=== PATIENT | female | born 1980 | race Caucasian/White ===

== ENCOUNTER 2020-09-19 08:57 | Day surgery (SDC) | payer OTHER ==
[~2020-09-19 08:57] MED LIST: Dexamethasone 4 MG/ML 5 ML MDV ONE; Ketorolac 30 MG/ML SDV ONE; Lactated Ringers 1,000 ML IV SCH; Lidocaine 1%/Sod Bicarbonate in NS 8.4% 1 ML Syringe IDERM PRN; Midazolam 1 MG/ML 2 ML SDV ONE; Ondansetron 4 MG/2 ML SDV ONE; Propofol 200 MG/20 ML SDV ONE; Rocuronium 50 MG/5 ML Vial ONE; Sodium Chloride 0.9% 10 ML Syringe FLUSH PRN; fentaNYL 250 MCG/5 ML SDV ONE
--- NOTE | 2020-09-19 09:42 | PCM.PREANE ---
Preanesthetic Assessment - Procedure Proposed Procedure: hysteroscopy with d and c - Anesthesia/Transfusion/Family Hx Anesthesia History: Prior Anesthesia Without Reaction Family History of Anesthesia Reaction: No Transfusion History: No Prior Transfusion(s) - Review of Systems General: No Symptoms Pulmonary: No Symptoms Cardiovascular: No Symptoms Gastrointestinal: No Symptoms Neurological: No Symptoms Other: Reports: Depression - Physical Assessment NPO Status Date: 09/18/20 NPO Status Time: 23:00 Vital Signs: 120/83 90 97% 97.8 16 Height: 5 ft 5 in Weight: 65 kg ASA Class: 2 Mental Status: Alert & Oriented x3 Airway Class: Mallampati = 1 Dentition: Reports: Normal Dentition Thyro-Mental Finger Breadths: 3 Mouth Opening Finger Breadths: 3 ROM/Head Extension: Full Lungs: Clear to Auscultation, Normal Respiratory Effort Cardiovascular: Regular Rate, Regular Rhythm - Allergies Allergies/Adverse Reactions: Allergies Allergy/AdvReac Type Severity Reaction Status Date / Time No Known Allergies Allergy Verified 09/18/20 14:41 - Blood Blood Available: No - Acknowledgements Anesthesia Type Planned: General Anesthesia, MAC Pt an Appropriate Candidate for the Planned Anesthesia: Yes Alternatives and Risks of Anesthesia Discussed w Pt/Guardian: Yes Pt/Guardian Understands and Agrees with Anesthesia Plan: Yes PreAnesthesia Questionnaire Cardiovascular History: Reports: None Respiratory History: Reports: Other (See Below) Other Respiratory History: cough Musculoskeletal History: Reports: Other (See Below) Other Musculoskeletal History: dysmennorhea, pelvic pain, irregulare menses, menorrhagia, Psychiatric History: Reports: Anxiety Endocrine/Metabolic History: Reports: None - Past Surgical History HEENT Surgical History: Reports: Oral Surgery - SUBSTANCE USE Tobacco Use Status *Q: Current Every Day Tobacco User Tobacco Use Within Last Twelve Months: Cigarettes Second Hand Smoke Exposure: Yes Days Per Week of Alcohol Use: 7 Number of Drinks Per Day: 1 Total Drinks Per Week: 7 Recreational Drug Use History: No - HOME MEDS Home Medications: Home Meds Cholecalciferol (Vitamin D3) [Vitamin D3] 1,000 unit PO DAILY 09/18/20 [History] Multivitamin [Multi-Vitamin Daily] 1 tab PO DAILY 09/18/20 [History] Norethindrone [Aygestin] 5 mg PO DAILY 09/18/20 [History] buPROPion HCL [Bupropion Xl] 300 mg PO DAILY 09/18/20 [History] - CURRENT (IN HOUSE) MEDS Current Meds: Current Medications Lactated Ringer's (Ringers, Lactated) 1,000 mls @ 125 mls/hr IV ASDIRECTED MICHELLE Stop: 09/19/20 23:00 Lidocaine/Sodium Bicarbonate (Lidocaine 1%/Sod Bicarbonate In Ns 8.4% 1 Ml Syringe) 0.25 ml IDERM ONETIME PRN PRN Reason: Prior to IV Start Stop: 09/19/20 18:00 Sodium Chloride (Sodium Chloride 0.9% 10 Ml Syringe) 10 ml FLUSH ASDIRECTED PRN PRN Reason: Keep Vein Open Stop: 09/19/20 18:00 Discontinued Medications Dexamethasone (Dexamethasone 4 Mg/Ml 5 Ml Mdv) Confirm Administered Dose 20 mg .ROUTE .STK-MED ONE Stop: 09/19/20 07:08 Fentanyl (Fentanyl 250 Mcg/5 Ml Sdv) Confirm Administered Dose 250 mcg .ROUTE .STK-MED ONE Stop: 09/19/20 07:07 Ketorolac Tromethamine (Ketorolac 30 Mg/Ml Sdv) Confirm Administered Dose 30 mg .ROUTE .STK-MED ONE Stop: 09/19/20 07:08 Lidocaine HCl (Lidocaine 1% 5 Ml Sdv) Confirm Administered Dose 5 ml .ROUTE .STK-MED ONE Stop: 09/19/20 07:08 Midazolam HCl (Midazolam 1 Mg/Ml 2 Ml Sdv) Confirm Administered Dose 2 mg .ROUTE .STK-MED ONE Stop: 09/19/20 07:07 Ondansetron HCl (Ondansetron 4 Mg/2 Ml Sdv) Confirm Administered Dose 4 mg .ROUTE .STK-MED ONE Stop: 09/19/20 07:08 Propofol (Propofol 200 Mg/20 Ml Sdv) Confirm Administered Dose 400 mg .ROUTE .STK-MED ONE Stop: 09/19/20 07:07 Rocuronium [place] (Rocuronium 50 Mg/5 Ml Vial) Confirm Administered Dose 50 mg .ROUTE .STK-MED ONE Stop: 09/19/20 07:08
[2020-09-19] MEDS ORDERED: Albuterol 0.083% 2.5 MG/3 ML Neb Soln NEB ONE (11:00)
[2020-09-19] MEDS ORDERED: Ketamine 500 mg/10 ML MDV ONE (11:04)
--- NOTE | 2020-09-19 11:13 | PCM.SN.2 ---
- Free Text/Narrative Note: Discussed with patient that I ordered an albuterol neb due to her history of smoking thus placing her at higher risk of having a reactive airway. Patient verbalized understanding. RT notified. On arrival of RT, patient refusing the albuterol treatment. Discussed with patient that she is a higher risk for having a reactive airway and having a bronchospasm. Patient verbalized understanding and would like to still refuse the albuterol treatment. Anushka Tan [employer]
[2020-09-19] MEDS ORDERED: Propofol 200 MG/20 ML SDV ONE (12:22)
[2020-09-19] MEDS ORDERED: Ondansetron 4 MG/2 ML SDV IVPUSH PRN (12:51)
--- NOTE | 2020-09-19 12:55 | PCM48HPAN ---
Post Anesthesia Note - EVALUATION WITHIN 48HRS OF ANESTHETIC Vital Signs in Normal Range: Yes Patient Participated in Evaluation: Yes Respiratory Function Stable: Yes Airway Patent: Yes Cardiovascular Function Stable: Yes Hydration Status Stable: Yes Pain Control Satisfactory: Yes Nausea and Vomiting Control Satisfactory: Yes Mental Status Recovered: Yes Vital Signs: Last Vital Signs Temp 98.2 F 09/19/20 12:41 Pulse 78 09/19/20 12:41 Resp 13 09/19/20 12:41 BP 111/75 09/19/20 12:41 Pulse Ox 100 09/19/20 12:41
--- NOTE | 2020-09-19 12:57 | PCM.OPNOTE ---
- General Post-Op/Procedure Note Date of Surgery/Procedure: 09/19/20 Operative Procedure(s): Hysteroscopy, dilation and curettage Findings: Uterus sounded to approximately 12 cm, approximately 3 small polypoid structure present in the anterior and left cornual area of the endometrial cavity. Bi manual exam showed uterus to be anteflexed, mildly enlarged, no adnexal abnormalities noted. Cervix is multiparous in nature. Patient had adequate pelvic relaxation to accommodate vaginal approach if hysterectomy were to be done. Pre Op Diagnosis: 1. Irregular uterine bleeding. 2. Thickened endometrium. 3. Complex endometrial hyperplasia without atypia Post-Op Diagnosis: Same Anesthesia Technique: MAC Primary Surgeon: Ervin Green Secondary Surgeon: Milla Cisneros Anesthesia Provider: Anushka Tan Pathology: Endometrial curettings Fluid Replacement, Intraop: 1,000 EBL in mLs: 5 Complications: None Condition: Good Free Text/Narrative:: Surgery duration: 14 minutes Procedure: The patient is taking the operative placed in a supine position on the operating table. She received 2 g of Ancef preoperatively for infection prophylaxis and had sequential compression stockings in place for DVT prophylaxis. Patient was given general MAC anesthesia. She is placed in a dorsal lithotomy position and prepped and draped in usual fashion. An exam under anesthesia was performed. Findings as described above. A weighted speculum was placed in the vagina. Cervix is visualized. It was grasped anteriorly with a single-tooth tenaculum. Uterus was then sounded to a depth of 12 cm. It is from the anterior, anteflexed mid position. The cervix was dilated to entrance of a 5 mm 12 rigid hysteroscope. This was placed without problem and normal saline was used as a distending medium. The perimetria cavity was visualized. Findings as described above. Decision was made to proceed with polypectomy. D&C was performed and 2-3 polyps were removed. Polyp forceps was introduced and the remaining polyp was removed. After this is performed a D&C was performed. Moderate amount tissue was obtained. Minimal bleeding was encountered. Hysteroscope was then placed back into the endometrial cavity. Blood was flushed out and the findings were consistent relatively normal-appearing endometrial cavity. At this point the scope was removed. The vagina was cleared of old blood, the cervix was released and the weighted speculum was removed. Patient was returned to supine position and awakened from general anesthesia. She tolerated the procedure well and operating room in good condition.
[2020-09-19] MEDS ORDERED: Ibuprofen 600 MG Tab PO PRN (13:00)
== END 2020-09-19 14:25 | disposition home or self-care (01) ==
LOC: JD.SDS 08:57
PROVIDERS: ATTEND Obstetrics & Gynecology
DX: N84.0 Polyp of corpus uteri (principal); N85.01 Benign endometrial hyperplasia; N93.9 Abnormal uterine and vaginal bleeding, unspecified; F17.210 Nicotine dependence, cigarettes, uncomplicated
CPT/HCPCS: 58558; J1885; J2250; J2704; J3010; J7120; 00952; J1100; J2405

== ENCOUNTER 2021-04-22 06:20 | Day surgery (SDC) | payer OTHER ==
[~2021-04-22 06:20] MED LIST changes: -Dexamethasone 4 MG/ML 5 ML MDV ONE; -Ketorolac 30 MG/ML SDV ONE; -Midazolam 1 MG/ML 2 ML SDV ONE; -Ondansetron 4 MG/2 ML SDV ONE; -Propofol 200 MG/20 ML SDV ONE; -Rocuronium 50 MG/5 ML Vial ONE; +Sodium Chloride 0.9% 10 ML Syringe FLUSH SCH; -fentaNYL 250 MCG/5 ML SDV ONE
[2021-04-22] MEDS ORDERED: Bupivacaine 0.25% 10 ML SDV ONE (06:39)
[2021-04-22] MEDS ORDERED: Lidocaine 1% 30 ML SDV ONE (06:39)
[2021-04-22] MEDS ORDERED: Triamcinolone Acetonide 40 MG/ML 1 ML SDV ONE (06:39)
[2021-04-22] MEDS ORDERED: Lidocaine 1% 4 ML ONE (06:53)
[2021-04-22] MEDS ORDERED: Propofol 200 MG/20 ML SDV ONE (06:53)
[2021-04-22] MEDS ORDERED: Midazolam 1 MG/ML 2 ML SDV ONE (06:53)
[2021-04-22] MEDS ORDERED: fentaNYL 100 MCG/2 ML SDV ONE (06:53)
[2021-04-22] MEDS ORDERED: Ondansetron 4 MG/2 ML SDV IVPUSH PRN (07:14)
[2021-04-22] MEDS ORDERED: fentaNYL 100 MCG/2 ML SDV IVPUSH PRN (07:14)
[2021-04-22] MEDS ORDERED: Ketorolac 30 MG/ML SDV ONE (07:33)
== END 2021-04-22 08:47 | disposition home or self-care (01) ==
LOC: JD.SDS 06:20
PROVIDERS: ATTEND Orthopaedic Surgery
DX: G56.13 Other lesions of median nerve, bilateral upper limbs (principal); G56.03 Carpal tunnel syndrome, bilateral upper limbs; F17.210 Nicotine dependence, cigarettes, uncomplicated; F41.9 Anxiety disorder, unspecified; Z79.899 Other long term (current) drug therapy; Z98.890 Other specified postprocedural states
CPT/HCPCS: 20526; 64721; J1885; J2250; J2704; J3010; J3301; J3490; J7120; 01810

== ENCOUNTER 2022-01-06 06:03 | Day surgery (SDC) | payer OTHER ==
[2022-01-06] MEDS ORDERED: Bupivacaine 0.25% 10 ML SDV ONE (06:08)
[2022-01-06] MEDS ORDERED: Midazolam 1 MG/ML 2 ML SDV ONE (06:42)
[2022-01-06] MEDS ORDERED: Sodium Bicarbonate 8.4% 50 MEQ/50 ML SDV ONE (06:42)
[2022-01-06] MEDS ORDERED: ceFAZolin 2 GM Vial ONE (06:42)
[2022-01-06] MEDS ORDERED: fentaNYL 100 MCG/2 ML SDV ONE (06:42)
[2022-01-06] MEDS ORDERED: Lidocaine 0.5% 50 ML SDV ONE (06:42)
[2022-01-06] MEDS ORDERED: Propofol 200 MG/20 ML SDV ONE (06:42)
[2022-01-06] MEDS ORDERED: Lidocaine 1% 5 ML VIAL ONE (06:43)
[2022-01-06] MEDS ORDERED: Ketorolac 30 MG/ML SDV ONE (07:15)
[2022-01-06] MEDS ORDERED: fentaNYL 100 MCG/2 ML SDV IVPUSH PRN (07:19)
[2022-01-06] MEDS ORDERED: Ondansetron 4 MG/2 ML SDV IVPUSH PRN (07:19)
== END 2022-01-06 08:40 | disposition home or self-care (01) ==
LOC: JD.SDS 06:03
PROVIDERS: ATTEND Orthopaedic Surgery
DX: M67.432 Ganglion, left wrist (principal); F40.243 Fear of flying; F17.210 Nicotine dependence, cigarettes, uncomplicated; Z79.899 Other long term (current) drug therapy; Z98.890 Other specified postprocedural states
CPT/HCPCS: 25111; J0690; J1885; J2250; J2704; J3010; J3490; J7120; 01810